=== PATIENT | male | born 1965 | race Caucasian/White ===

== ENCOUNTER 2017-04-30 16:37 | Emergency (ER) | payer BC, OTHER ==
[~2017-04-30] VITALS: Ht 175.3 cm; Wt 98.5 kg
[~2017-04-30 16:37] MED LIST: CLONIDINE HCL0.1 MG PO; MELOXICAM15 MG PO; MONTELUKAST SOD10 MG PO; MOTRIN800 MG PO; MUCINEX1200 MG PO; PROTONIX40 MG PO; SIMVASTATIN20 MG PO; VICODIN,LORT1 TABLET PO; VITAMIN C WIT1000 MG PO; VITAMIN D; ZYRTEC10 M3 PO; [UNRECOGNIZED DRUG - OTHER] PO
[2017-04-30 18:03] LABS: HEMATOCRIT 39.5 % (38.0-50.0); HEMOGLOBIN 13.6 G/DL (12.5-16.6); MCH 28.3 PG (29.0-34.0); MCHC 34.4 G/DL (30.0-36.0); MCV 82.3 FL (86-99); PLATELET COUNT 258 K/uL (156-360); RBC DIS.WIDTH-CV 13.3 % (11.8-14.6); RBC DIS.WIDTH-SD 39.7 % (39-53); WHITE BLOOD COUNT 6.4 K/uL (4.1-10.2)
[2017-04-30 18:11] LABS: CHLORIDE 108 mEq/L (99-109); POTASSIUM 3.6 mEq/L (3.7-5.4); SODIUM 141 mEq/L (136-147)
[2017-04-30 18:12] LABS: GLUCOSE 94 mg/dL (70-99)
[2017-04-30 18:16] LABS: GFR ESTIMATE (CALCULATED) > 59 mL/min/ (58.99-99999)
[2017-04-30 18:17] LABS: UREA NITROGEN (BUN) 20 mg/dL (9-23)
[2017-04-30 18:56] LABS: APPEARANCE CLEAR ((CLEAR)); BILIRUBIN NEGATIVE; BLOOD NEGATIVE; COLOR YELLOW ((YELLOW)); GLUCOSE (STRIP) NEGATIVE; KETONES 5; LEUKOCYTES NEGATIVE; NITRITE NEGATIVE; PROTEIN (STRIP) 30; SPECIFIC GRAVITY 1.033 (1.000-1.030); UCUL ADDED? NO
[2017-04-30 19:03] LABS: ALBUMIN 4.3 g/dL (3.2-4.8)
[2017-04-30 19:08] LABS: TOTAL BILIRUBIN 0.5 mg/dL (0.0-1.0)
[2017-04-30 19:09] LABS: ALKALINE PHOSPHATASE 80 IU/L (3-129)
[2017-04-30 19:11] LABS: AST (GOT) 19 IU/L (2-34); DIRECT BILIRUBIN 0.2 mg/dL (0.0-0.3)
[2017-04-30 19:12] LABS: ALT (GPT) 18 IU/L (3-49); LIPASE 16 U/L (1.0-51.0)
[2017-04-30 21:06] LABS: CREATINE KINASE 145 IU/L (1-294)
[2017-04-30] MEDS ORDERED: MOTRIN800 MG PO (21:32)
[2017-04-30 22:06] VITALS: BP 139/89
== END 2017-04-30 22:08 | disposition home or self-care (01) ==
LOC: EME 16:37
DX: R10.31 Right lower quadrant pain (principal); N50.811 Right testicular pain; K76.0 Fatty (change of) liver, not elsewhere classified; K57.30 Diverticulosis of large intestine without perforation or abscess without bleeding; Z79.891 Long term (current) use of opiate analgesic; Z86.018 Personal history of other benign neoplasm
CPT/HCPCS: 74177; 76870; 80048; 80076; 81003; 82550; 83605; 83690; 85027; 93975; 99281; 99284; J7030

== ENCOUNTER 2017-11-24 12:01 | Emergency (ER) | payer BC, OTHER ==
[~2017-11-24] VITALS: Ht 175.3 cm; Wt 98.1 kg
[2017-11-24 12:44] LABS: HEMOGLOBIN 13.5 G/DL (12.5-16.6); MCH 28.5 PG (29.0-34.0); MCHC 34.6 G/DL (30.0-36.0); MCV 82.3 FL (86-99); PLATELET COUNT 242 K/uL (156-360); RBC DIS.WIDTH-CV 13.6 % (11.8-14.6); RBC DIS.WIDTH-SD 40.4 % (39-53); RED BLOOD COUNT 4.74 M/uL (4.00-5.50); WHITE BLOOD COUNT 7.9 K/uL (4.1-10.2)
[2017-11-24 12:47] LABS: CHLORIDE 104 mEq/L (99-109); POTASSIUM 3.5 mEq/L (3.7-5.4); SODIUM 140 mEq/L (136-147)
[2017-11-24 12:49] LABS: GLUCOSE 96 mg/dL (70-99)
[2017-11-24 12:53] LABS: GFR ESTIMATE (CALCULATED) > 59 mL/min/ (58.99-99999)
[2017-11-24 12:54] LABS: UREA NITROGEN (BUN) 17 mg/dL (9-23)
[2017-11-24 13:00] LABS: TROP-I INTERPRETATION NEGATIVE; TROPONIN-I < 0.01 ng/mL (0.0-0.30)
[2017-11-24 14:02] LABS: D-DIMER ELISA < 150.00 ng/mLDDU (<230)
[2017-11-24 15:38] LABS: TROP-I INTERPRETATION NEGATIVE; TROPONIN-I < 0.01 ng/mL (0.0-0.30)
[2017-11-24 16:14] VITALS: BP 167/84
== END 2017-11-24 16:14 | disposition home or self-care (01) ==
LOC: EME 12:01
PROVIDERS: Emergency Medicine
DX: R07.89 Other chest pain (principal); I10 Essential (primary) hypertension; E78.5 Hyperlipidemia, unspecified
CPT/HCPCS: 71046; 80048; 84484; 85027; 85379; 93005; 99281; 99284